=== PATIENT | male | born 1990 | race Caucasian/White ===

== ENCOUNTER → 2021-03-08 | Outpatient (CLI) | payer OTHER | END | disposition home or self-care (01) | LOC: MRI 11:00 | DX: M99.03 Segmental and somatic dysfunction of lumbar region (principal); M46.06 Spinal enthesopathy, lumbar region | CPT/HCPCS: 72148 ==

== ENCOUNTER → 2021-03-14 | Outpatient (CLI) | payer OTHER | END | disposition home or self-care (01) | LOC: TOM 08:18 | DX: M54.5 Low back pain (principal); N18.9 Chronic kidney disease, unspecified; K59.00 Constipation, unspecified ==

== ENCOUNTER 2021-05-30 06:24 | Outpatient (CLI) | payer OTHER | END 2021-05-30 07:00 | disposition home or self-care (01) | LOC: SONOGRAMA 06:24 | DX: K76.0 Fatty (change of) liver, not elsewhere classified (principal) ==